=== PATIENT | female | born 1995 | race Caucasian/White ===

== ENCOUNTER 2021-07-05 14:29 | Emergency (ER) | payer BC ==
[2021-07-05] MEDS ORDERED: Lidocaine 1% with EPINEPHrine 1:100,000 50 ML MDV INFILT STA (15:20)
--- NOTE | 2021-07-05 15:21 | EDM.PDOC ---
ED HPI GENERAL MEDICAL PROBLEM - General Chief Complaint: Laceration Stated Complaint: WAKE SURFING AND HIT FACE WITH BOARD Time Seen by Provider: 07/05/21 15:21 Source of Information: Reports: Patient, RN Notes Reviewed History Limitations: Reports: No Limitations - History of Present Illness INITIAL COMMENTS - FREE TEXT/NARRATIVE: Katt present today for complaints of laceration to left upper cheek after wiping out while wake-boarding [employer]. She denies LOC, change in vision, nausea, vomiting, headache, loss or change of hearing, fever, chills or other concerns. GCS 15 Her fall was witnessed. She was wearing a life jacket. Tetanus up to date - Related Data Allergies Allergy/AdvReac Type Severity Reaction Status Date / Time No Known Allergies Allergy Verified 07/05/21 15:13 Home Meds: Home Meds Hydrocortisone 10 mg PO BID 07/05/21 [History] Past Medical History HEENT History: Reports: Impaired Vision Respiratory History: Reports: Asthma Musculoskeletal History: Reports: None Neurological History: Reports: Migraines Psychiatric History: Reports: Anxiety, Depression, Panic Attack Immunologic History: Reports: Other (See Below) Other Immunologic History: lymes - Infectious Disease History Infectious Disease History: Reports: Influenza, Shingles - Past Surgical History Head Surgeries/Procedures: Reports: None HEENT Surgical History: Reports: None Respiratory Surgical History: Reports: None GI Surgical History: Reports: None Neurological Surgical History: Reports: None Musculoskeletal Surgical History: Reports: Other (See Below) Other Musculoskeletal Surgeries/Procedures:: right wrist Dermatological Surgical History: Reports: None Social & Family History - Tobacco Use Tobacco Use Status *Q: Never Tobacco User Second Hand Smoke Exposure: No - Caffeine Use Caffeine Use: Reports: Tea - Recreational Drug Use Recreational Drug Use: No ED ROS GENERAL - Review of Systems Review Of Systems: See Below Constitutional: Reports: No Symptoms HEENT: Reports: Vertigo, Other (Laceration left upper cheek, bleeding controlled). Denies: Dental Pain, Ear Pain, Eye Discharge, Eye Pain, Hearing Loss, Nose Pain, Rhinitis, Sinus Problem, Vision Change Respiratory: Reports: No Symptoms Cardiovascular: Reports: No Symptoms Endocrine: Reports: No Symptoms GI/Abdominal: Reports: No Symptoms : Reports: No Symptoms Musculoskeletal: Reports: No Symptoms Neurological: Reports: Other (intermittent chronic vertigo, current episode of vertigo for about 7 days off and on. No use of OTC medications for symptoms. ). Denies: Confusion, Dizziness, Headache, Numbness, Paresthesia, Seizure, Syncope, Tingling, Tremors, Trouble Speaking, Difficulty Walking, Weakness, Change in Speech, Gait Disturbance Psychiatric: Reports: No Symptoms Hematologic/Lymphatic: Reports: No Symptoms Immunologic: Reports: No Symptoms ED EXAM, SKIN/RASH Exam: See Below Exam Limited By: No Limitations General Appearance: Alert, WD/WN, No Apparent Distress Eye Exam: Bilateral Eye: EOMI, Normal Fundi, Normal Inspection, Nystagmus (very slight with change in position), PERRL, Other (no loss/change of vision) Ears: Normal External Exam, Normal Canal, Hearing Grossly Normal, Normal TMs Nose: Normal Inspection, Normal Mucosa, No Blood. No: Nasal Tenderness, Nasal Deformity, Nasal Swelling, Nasal Drainage, Nasal Flaring Throat/Mouth: Normal Inspection, Normal Lips, Normal Teeth, Normal Gums, Normal Oropharynx, Normal Voice, No Airway Compromise, Other (No damaged or loose dentition) Head: Normocephalic, Facial Swelling, Facial Tenderness (to left upper cheek, ecchymosis, 1.3cm laceration, bleeding controlled). No: Sinus Tenderness Neck: Normal Inspection, Supple, Non-Tender, Full Range of Motion. No: Lymphadenopathy (R), Lymphadenopathy (L), Tender Lateral, Tender Midline, Thyromegaly Respiratory/Chest: No Respiratory Distress, Lungs Clear, Normal Breath Sounds, No Accessory Muscle Use, Chest Non-Tender. No: Crackles, Rales, Rhonchi, Wheezing, Stridor, Pleural Rub, Accessory Muscle Use, Retractions Cardiovascular: Normal Peripheral Pulses, Regular Rate, Rhythm, No Edema, No Gallop, No Murmur, No Rub Peripheral Pulses: 4+: Radial (L), Radial (R) Back Exam: Normal Inspection, Full Range of Motion. No: CVA Tenderness (R), CVA Tenderness (L) Extremities: Normal Inspection, Normal Range of Motion, Non-Tender, No Pedal Edema, Normal Capillary Refill Neurological: Alert, Oriented, CN II-XII Intact, Normal Cognition, Normal Gait, Normal Reflexes, No Motor/Sensory Deficits, Other (very slight nystagmus, GCS 15) Psychiatric: Normal Affect, Normal Mood Skin: Warm, Dry, Ecchymosis, Wound/Incision (linear laceration 1.3cm left upper cheek). No: Cyanosis, Erythema, Pallor, Petechiae, Rash Location, Skin: Face Characteristics: Linear Associated features: Tenderness. No: Warmth, Swelling, Inflammation, Weeping Lymphatic: No Adenopathy ED SKIN PROCEDURES - Laceration/Wound Repair Left Upper Cheek Appearance: Superficial, Linear, Clean Distal NVT: Neuro & Vascular Intact, No Tendon Injury Anesthetic Type: Local Local Anesthesia - Lidocaine (Xylocaine): 1% with EPI Local Anesthetic Volume: 1cc Skin Prep: Chlorhexidine (Hibiciens), Saline Saline Irrigation (cc's): 10 Exploration/Debridement/Repair: Wound Explored, In a Bloodless Field, Explored to Base, No Foreign Material Found Closed with: Sutures Lac/Wound length In cm: 1.3 Suture Size: 6-0 # of Sutures: 1 Suture Type: Nylon, Running Sterile Dressing Applied: Nurse Tetanus Status Addressed: Yes Complications: No Progress/Comments: Patient tolerated well. Education provided on signs of infection, patient and tape machine tailer verbalize understanding. Instruction for suture removal in 6 days to help minimize scar - she will follow up with her primary in [place]. Course - Vital Signs Last Recorded V/S: Last Vital Signs Temp 36.4 C 07/05/21 15:19 Pulse 72 07/05/21 15:19 Resp 16 07/05/21 15:19 BP 113/73 07/05/21 15:19 Pulse Ox 99 07/05/21 15:19 - Orders/Labs/Meds Meds: Medications Discontinued Medications Generic Name Dose Route Start Last Admin Trade Name Mila PRN Reason Stop Dose Admin Lidocaine/Epinephrine 5 ml 07/05/21 15:20 07/05/21 15:39 Lidocaine 1% With Epinephrine 1:100,000 50 Ml Mdv INFILT 07/05/21 15:21 5 ml NOW STA Administration - Re-Assessments/Exams Free Text/Narrative Re-Assessment/Exam: Discussion on chronic and intermittent vertigo with patient and her tape machine tailer. She has not tried use of meclizine, Romeo or PT. She was advised to try use of meclizine as she has no other neurological deficits. She was advised to follow up with primary, audiology, ophthalmology and any other recommended providers per her primary for ongoing vertigo. Patient and her tape machine tailer verbalized understanding. GCS 15 07/05/21 17:16 Departure - Departure Time of Disposition: 16:01 Disposition: Home, Self-Care 01 Condition: Good Clinical Impression: Facial laceration, Vertigo - Discharge Information *PRESCRIPTION DRUG MONITORING PROGRAM REVIEWED*: Not Applicable *COPY OF PRESCRIPTION DRUG MONITORING REPORT IN PATIENT [id number]: Not Applicable Instructions: Facial Laceration Referrals: PCP,None [Primary Care Provider] - Forms: ED Department Discharge Additional Instructions: You have been evaluated for laceration to the left face while wake-boarding. No LOC Laceration repaired with one running 6-0 nylon suture, edges well approximated. Keep area clean and dry, covered with light bandaid for 24 hours. May shower per routine, wash with mild soap and water once a day. Apply plain bacitracin ointment to the laceration once a day in a very small amount. Cover lightly with bandaid when outside and at risk for getting dirty. Have suture removed in 6 days. Monitor for signs of infection such as redness, warmth or puss like drainage. Follow up with primary for any signs of infection. Once healed, apply sunscreen to minimize scar. You can also use mederma or bio-oil to help minimize scar. You have also suffered from intermittent vertigo that started prior to the accident today. Continue your daily use of zyrtec. You can take meclizine one tablet up to three times a day to help with vertigo. If the meclizine makes you sleepy, then take 1/2 pill in morning, 1/2 pill in afternoon and full pill at bedtime. Follow up with your primary provider for suture removal in 6 days and for follow up of chronic intermittent vertigo. Advise Audiology, possible PT for romeo maneuver or other intervention if needed. Return for any worsening, issues or concerns. Sepsis Event Note (ED) - Evaluation Sepsis Screening Result: No Definite Risk - Focused Exam Vital Signs: Vital Signs Temp Pulse Resp BP Pulse Ox 07/05/21 15:19 36.4 C 72 16 113/73 99 07/05/21 14:57 36.4 C 72 16 113/73 99 - Assessment/Plan Assessment:: Facial laceration, Vertigo No LOC Chronic intermittent vertigo, no change in vision, mental status, balance or gait. Neurologically intact. Plan: Patient evaluated for laceration to the left face while wake-boarding. No LOC Laceration repaired with one running 6-0 nylon suture, edges well approximated. Keep area clean and dry, covered with light bandaid for 24 hours. May shower per routine, wash with mild soap and water once a day. Apply plain bacitracin ointment to the laceration once a day in a very small amount. Cover lightly with bandaid when outside and at risk for getting dirty. Have suture removed in 6 days. Monitor for signs of infection such as redness, warmth or puss like drainage. Follow up with primary for any signs of infection. Once healed, apply sunscreen to minimize scar. She can also use mederma or bio-oil to help minimize scar. She suffers from intermittent vertigo that started prior to the accident today. Continue daily use of zyrtec. She can take meclizine one tablet up to three times a day to help with vertigo. If the meclizine makes her sleepy, then take 1/2 pill in morning, 1/2 pill in afternoon and full pill at bedtime. Follow up with primary provider for suture removal in 6 days and for follow up of chronic intermittent vertigo. Advise Audiology, possible PT for romeo maneuver or other intervention if needed. Return for any worsening, issues or concerns.
== END 2021-07-05 16:13 | disposition home or self-care (01) ==
LOC: JP.ED 14:29
DX: S01.412A Laceration without foreign body of left cheek and temporomandibular area, initial encounter (principal); R42 Dizziness and giddiness; W26.8XXA Contact with other sharp object(s), not elsewhere classified, initial encounter
CPT/HCPCS: 12011; 99282-25